=== PATIENT | male | born 1955 ===

== ENCOUNTER 2023-09-17 05:26 | Day surgery (SDC) | payer OTHER ==
[2023-09-13 10:59] LABS: PH,URINE 5.5 (5.0-8.0); URINE APPEARANCE Clear; URINE BILIRRUBIN Negative (NEGATIVE); URINE BLOOD Trace; URINE COLOR Yellow; URINE GLUCOSE Negative (NEGATIVE); URINE LEUKOCYTE Negative; URINE NITRATE Negative; URINE PROTEIN Negative (NEGATIVE); URINE UROBILINOGEN 0.2 E.U./dl
[2023-09-13 11:07] LABS: URINE RBC 6.3 uL (0.0-20.8)
[2023-09-13 11:12] LABS: HEMATOCRIT 42.7 % (39.0-48.0); HEMOGLOBIN 14.8 g/dL (13-16.00); MEAN CELL VOLUME 86.5 fL (80.0-100.00); MEAN CORPUSCULAR HEMOGLOBIN 30.1 pg (27.00-32.0); MEAN CORPUSCULAR HGB CONC 34.8 g/dl (32.0-36.0); PLATELET COUNT 160 K/uL (150-450); RED BLOOD COUNT 4.93 M/uL (4.00-6.00); RED CELL DISTRIBUTION WIDTH 13.8 % (11.5-14.5)
[2023-09-13 11:27] LABS: URINE EPITHELIAL CELLS 1.3 uL (0.0-38.8)
[2023-09-13 11:31] LABS: INR 0.98; PARTIAL THROMBOPLASTIN TIME 24.7 SECONDS (22.0-34.0); PROTHROMBIN TIME 10.3 SECONDS (9.0-11.5)
[2023-09-13 11:35] LABS: ALBUMIN 4.1 gm/dL (3.4-5.0); CALCIUM 9.1 mg/dL (8.5-10.1); CREATININE SERUM 1.01 mg/dL (0.70-1.30); GFR 73.68; PHOSPHOROUS 2.9 mg/dL (2.5-4.9); POTASSIUM 3.73 mEq/L (3.5-5.1)
[~2023-09-17 05:26] MED LIST: ATORVAST PO; COZAAR100 MG PO; GLIMEPIRIDE1 M1 PO; GLUMETZA500 MG PO
[2023-09-17] MEDS ORDERED: CEPHALEXIN500 M1 PO (08:54)
[2023-09-17] MEDS ORDERED: CIPROFLOXACIN2.5 ML OTIC (08:54)
== END 2023-09-17 11:25 | disposition home or self-care (01) ==
LOC: CIR.AMB 05:26
PROVIDERS: ATTEND Otolaryngology Otology & Neurotology
DX: C44.202 Unspecified malignant neoplasm of skin of right ear and external auricular canal (principal); S01.311A Laceration without foreign body of right ear, initial encounter; Z20.822 Contact with and (suspected) exposure to COVID-19; I10 Essential (primary) hypertension; E78.5 Hyperlipidemia, unspecified